=== PATIENT | female | born 1945 | race Caucasian/White ===

== ENCOUNTER 2019-01-19 16:49 | Outpatient (CLI) | payer MEDICARE, BC ==
--- NOTE | 2019-01-19 18:27 | XRAY Report ---
Reason: COUGH Procedure Date: 01/19/2019 Accession Number: [id number] / [id number] Procedure: XR - Chest 2 View X-Ray CPT Code: 06750 Final Report FULL RESULT: EXAM: CHEST RADIOGRAPHY EXAM DATE: 01/19/2019 05:09 PM. CLINICAL HISTORY: COUGH for 1 month. COMPARISON: XR CHEST PA AND LAT 10/09/2007 4:05 PM. TECHNIQUE: 2 views. FINDINGS: Lungs/Pleura: No focal consolidation. Minimal streaky atelectasis or scarring in the lung bases. No pleural effusion. No pneumothorax. Mildly low expansion. Mediastinum: Heart and mediastinal contours are unremarkable. Other: Left chest wall clips. IMPRESSION: No acute cardiopulmonary abnormality. RADIA The call report notification system was initiated by Dr. Bruce Talley at 06:26 PM on 01/19/2019.
== END 2019-01-19 16:50 | disposition home or self-care (01) ==
LOC: DI 16:49
PROVIDERS: ATTEND Internal Medicine
DX: R05 Cough (principal)
CPT/HCPCS: 71046

== ENCOUNTER 2021-01-19 14:26 | Emergency (ER) | payer MEDICARE, BC ==
[2021-01-19] MEDS ORDERED: IBUPROFEN 600 MG TABLET PO STA (14:47)
[2021-01-19] MEDS ORDERED: ACETAMINOPHEN 325 MG TABLET PO STA (14:47)
--- NOTE | 2021-01-19 14:48 | ED Physician Documentation ---
PD HPI UPPER EXT INJURY - Stated complaint Stated Complaint: FALL - Chief complaint Chief Complaint: Trauma Ext - History obtained from History obtained from: Patient - History of Present Illness Location: Left, Clavicle, Shoulder Type of injury: Fall Where injury occurred: Home Pain level max: 6 Pain level now: 4 Improved by: Rest Worsened by: Moving, Palpating Associated symptoms: No: Weakness, Numbness, Tingling, Swelling, Discolored Contributing factors: No: Anticoagulated - Additonal information Additional information: Patient is a 75-year-old female who presents to the emergency department after a trip and fall today, landing on a concrete floor on her left shoulder. Complains of pain to the left clavicle and shoulder. No head injury. No headac he. No neck or back pain. This occurred at home. Pain is worse with movement, better with rest. No swelling. No numbness or tingling. Not anticoagulated. Review of Systems Constitutional: denies: Fever, Chills GI: denies: Vomiting, Diarrhea Skin: denies: Rash Musculoskeletal: denies: Neck pain, Back pain Neurologic: denies: Headache PD PAST MEDICAL HISTORY - Past Medical History Past Medical History: Yes Psych: Depression, Obsessive compulsive disorder - Present Medications Home Medications: Ambulatory Orders Medication Instructions Recorded Confirmed ARIPiprazole [Abilify] 5 mg PO DAILY 09/13/17 09/12/18 Atorvastatin Calcium 80 mg PO DAILY 09/13/17 09/12/18 LORazepam [Lorazepam] 0.5 mg PO PRN PRN 09/13/17 09/12/18 Lactobacillus Acidophilus 2 each PO DAILY 09/13/17 09/12/18 [Probiotic Acidophilus] Mv-Mn/Folic AC/Calcium/Vit K1 1 tab PO DAILY 09/13/17 09/12/18 [Women's 50 Plus Daily Formula] PARoxetine HCL [Paroxetine HCl] 60 mg PO DAILY 09/13/17 09/12/18 Trazodone HCl 100 mg PO PRN PRN 09/13/17 09/12/18 Venlafaxine ER [Effexor ER] 150 mg PO DAILY 09/13/17 09/12/18 carvediloL [Carvedilol] 3.125 mg PO DAILY 09/13/17 04/15/19 lisinopriL [Lisinopril] 5 mg PO BID 09/13/17 04/15/19 traZODone [Desyrel] 300 mg PO HS 03/14/18 09/12/18 Oxycodone HCl/Acetaminophen 1 - 2 each PO Q6H PRN #14 tablet 01/19/21 [Percocet 5-325 mg Tablet] - Allergies Allergies/Adverse Reactions: Allergies Allergy/AdvReac Type Severity Reaction Status Date / Time latex Allergy Hives Verified 01/19/21 14:29 dexamethasone AdvReac Unknown Verified 01/19/21 14:29 penicillin G AdvReac Unknown Verified 01/19/21 14:29 Sulfa (Sulfonamide AdvReac Emesis Verified 01/19/21 14:29 Antibiotics) PD ED PE NORMAL - Vitals Vital signs reviewed: Yes - General General: Alert and oriented X 3, No acute distress - HEENT HEENT: Moist mucous membranes - Neck Neck: Supple, no meningeal sign, No bony TTP - Cardiac Cardiac: RRR - Respiratory Respiratory: No respiratory distress, Clear bilaterally - Abdomen Abdomen: Soft, Non tender, Non distended - Back Back: No spinal TTP - Derm Derm: Warm and dry - Extremities Extremities: Other (L shoulder - mild TTP distal clavicle, no deformity. NVI. FROM of the L shoulder. no scapular tenderness. ) - Neuro Neuro: Alert and oriented X 3 - Psych Psych: Normal mood, Normal affect Results - Vitals Vitals: Vital Signs - 24 hr 01/19/21 01/19/21 14:29 16:15 Temperature 36.5 C Heart Rate 81 86 Respiratory 16 18 Rate Blood Pressure 175/82 H 146/68 H O2 Saturation 96 96 Oxygen O2 Source Room air - Rads (name of study) L shoulder xray Radiology: Final report received, EMP read contemporaneously, See rad report L clavicle xray Radiology: Final report received, EMP read contemporaneously, See rad report PD MEDICAL DECISION MAKING - ED course Complexity details: reviewed results, re-evaluated patient, considered differential, d/w patient ED course: No acute findings on x-ray. Using the arm well. We will continue supportive c are and have her follow-up with her doctor for further care. No bruising or swelling. Neurovascular intact. No evidence of head injury. No indication for CT scan. No neck pain or tenderness. No scalp hematomas. GCS 15. Patient counseled regarding signs and symptoms for which I believe and urgent re- evaluation would be necessary. Patient with good understanding of and agreement to plan and is comfortable going home at this time This document was made in part using voice recognition software. While efforts are made to proofread this document, sound alike and grammatical errors may occur. Departure - Departure Disposition: Home, Self Care Clinical Impression: Contusion of shoulder, left Qualifiers: Encounter type: initial encounter Qualified Code(s): S40.012A - Contusion of left shoulder, initial encounter Condition: Good Instructions: ED Sprain Shoulder Follow-Up: your,doctor in 1 week [Other] Prescriptions: Oxycodone HCl/Acetaminophen [Percocet 5-325 mg Tablet] 1 - 2 each PO Q6H PRN #14 tablet PRN Reason: pain Comments: Please follow up with your doctor for further care. Return if you worsen. Patient was sent to [facility] in [place]. Your x-rays are normal. I am prescribing a short course of narcotic pain medication for you. These are potentially dangerous and addictive medications that should be used carefully. These medications may constipate you. Take an srnd-cae-qikxfwa stool softener (docusate) twice daily with plenty of water while taking these medications. If you go 24 hours without a bowel movement, take oqii-cvo-gscihha miralax, per package instructions. Do not drink or drive while taking these medications. If you received narcotic or sedating medications while in the emergency department, do not drive for 24 hours. Store this medication in a safe, secure place and out of reach of children. It is a violation of federal law to give or sell this medication to another person or to use in a manner other than prescribed. The ED will not refill narcotic prescriptions, including prescriptions lost or stolen. To dispose of unwanted medications: 1. [facility] at [address] in [place] has a medication drop box. They accept prescription medications (in pill form) Saturday through Saturday 9:00 a.m. to 5:00 p.m. 2. The [facility] [employer] [facility] accepts prescription medications (in pill form only) for disposal year round. Call for more information. 3. Contact the [facility] for the next [facility] sponsored prescription drug collection event. , [phone], or [phone]; Discharge Date/Time: 01/19/21 16:16
--- NOTE | 2021-01-19 15:33 | XRAY Report ---
PROCEDURE: Shoulder 3 View LT INDICATIONS: fall, shoulder/clavicle pain TECHNIQUE: 3 views of the shoulder were acquired. COMPARISON: 01/19/2019 chest radiograph FINDINGS: No fracture or dislocation. Calcification in the rotator cuff interval is unchanged from comparison c hest radiograph. Joint space is maintained without significant degenerative changes. Left axillary pineda rgical clip. The regional soft tissues are otherwise normal. IMPRESSION: No acute finding. Reviewed by: Hunter Perez MD on 01/19/2021 3:31 PM PST Approved by: Hunter Perez MD on 01/19/2021 3:31 PM PST Station ID: [id number]
--- NOTE | 2021-01-19 15:34 | XRAY Report ---
PROCEDURE: Clavicle LT INDICATIONS: Trauma, fall, shoulder pain TECHNIQUE: 2 views of the clavicle were acquired. COMPARISON: None. FINDINGS: Bones: No fractures or dislocations. No suspicious bony lesions. Soft tissues: No suspicious soft tissue calcifications. IMPRESSION: No clavicle fracture. Reviewed by: Hunter Perez MD on 01/19/2021 3:32 PM PST Approved by: Hunter Perez MD on 01/19/2021 3:32 PM PST Station ID: [id number]
[2021-01-19 16:16] VITALS: BP 146/68
== END 2021-01-19 16:16 | disposition home or self-care (01) ==
LOC: ED 14:26
DX: S40.012A Contusion of left shoulder, initial encounter (principal); W10.9XXA Fall (on) (from) unspecified stairs and steps, initial encounter
CPT/HCPCS: 73000; 73030; 99283; 99284; A9270

== ENCOUNTER 2021-04-13 08:00 | Outpatient (CLI) | payer MEDICARE, BC ==
[2021-04-13 16:00] LABS: BASOPHILS # (AUTO) 0.1 10^3/uL (0.0-0.1); BASOPHILS % (AUTO) 0.7 %; EOSINOPHILS # (AUTO) 0.1 10^3/uL (0.0-0.7); EOSINOPHILS % (AUTO) 1.8 %; HCT - HEMATOCRIT 31.7 % (37.0-47.0); HGB - HEMOGLOBIN 9.8 g/dL (12.0-16.0); LYMPHOCYTES # (AUTO) 1.7 10^3/uL (1.5-3.5); LYMPHOCYTES % (AUTO) 22.2 %; MEAN CORPUSCULAR HEMOGLOBIN 27.9 pg (27.0-31.0); MEAN CORPUSCULAR HGB CONC 30.9 g/dL (32.0-36.0); MEAN CORPUSCULAR VOLUME 90.3 fL (81.0-99.0); MEAN PLATELET VOLUME 9.1 fL (7.9-10.8); MONOCYTES # (AUTO) 0.4 10^3/uL (0.0-1.0); MONOCYTES % (AUTO) 5.4 %; NEUTROPHILS # (AUTO) 5.3 10^3/uL (1.5-6.6); NEUTROPHILS % (AUTO) 69.6 %; PLT - PLATELET COUNT 386 10^3/uL (130-450); RED BLOOD COUNT 3.51 10^6/uL (4.20-5.40); RED CELL DISTRIBUTION WIDTH 18.7 % (12.0-15.0); WHITE BLOOD COUNT 7.6 x10^3/uL (4.8-10.8)
[2021-04-13 16:16] LABS: ALBUMIN 3.7 g/dL (3.2-5.5); ALBUMIN/GLOBULIN RATIO 1.1 (1.0-2.2); ALKALINE PHOSPHATASE 98 IU/L (42-121); ALT ALANINE AMINOTRANSFERASE 26 IU/L (10-60); AST ASPARTATE AMINOTRANSFERASE 21 IU/L (10-42); BILIRUBIN,TOTAL 0.6 mg/dL (0.2-1.0); BUN - BLOOD UREA NITROGEN 32 mg/dL (6-20); CALCIUM 9.4 mg/dL (8.5-10.3); CARBON DIOXIDE - CO2 24 mmol/L (21-32); CHLORIDE 99 mmol/L (101-111); CHOL/HDL RATIO 2.4 (<4.4); CHOLESTEROL 134 mg/dL; CREATININE 0.9 mg/dL (0.4-1.0); GFR - MDRD 61 (>89); GLUCOSE 69 mg/dL (70-100); HDL CHOLESTEROL 57 mg/dL; LDL CHOLESTEROL,CALCULATED 59 mg/dL; POTASSIUM 3.9 mmol/L (3.5-5.0); SODIUM 136 mmol/L (135-145); TOTAL PROTEIN 7.1 g/dL (6.7-8.2); TRIGLYCERIDES 90 mg/dL; VLDL CHOLESTEROL 18 mg/dL
[2021-04-13 20:30] LABS: ESTIMATED AVERAGE GLUCOSE 120 mg/dL (70-100); HEMOGLOBIN A1c% 5.8 % (4.27-6.07)
== END 2021-04-13 23:59 | disposition home or self-care (01) ==
LOC: LAB.R 08:00
PROVIDERS: ATTEND Internal Medicine
DX: Z00.00 Encounter for general adult medical examination without abnormal findings (principal); C50.919 Malignant neoplasm of unspecified site of unspecified female breast; E78.5 Hyperlipidemia, unspecified; I10 Essential (primary) hypertension; R73.01 Impaired fasting glucose; F42.9 Obsessive-compulsive disorder, unspecified; M85.80 Other specified disorders of bone density and structure, unspecified site; J45.909 Unspecified asthma, uncomplicated; Z13.6 Encounter for screening for cardiovascular disorders; Z79.899 Other long term (current) drug therapy
CPT/HCPCS: 80053; 80061; 82306; 83036; 83721; 84443; 85025

== ENCOUNTER 2021-05-25 17:53 | Emergency (ER) | payer MEDICARE, BC ==
--- NOTE | 2021-05-25 18:29 | ED Physician Documentation ---
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 It went away pretty quickly. This was earlier afternoon. No pain since. There was no associated sweats or shortness of breath. She presumes that it was GI related but was referred here for further evaluation and treatment. Review of Systems Constitutional: denies: Fever, Chills Nose: reports: Reviewed and negative Cardiac: denies: Chest pain / pressure, Palpitations Respiratory: reports: Reviewed and negative PD PAST MEDICAL HISTORY - Past Medical History Psych: Depression, Obsessive compulsive disorder - Present Medications Home Medications: Ambulatory Orders Medication Instructions Recorded Confirmed ARIPiprazole [Abilify] 5 mg PO DAILY 09/13/17 04/28/21 Atorvastatin Calcium 80 mg PO DAILY 09/13/17 04/28/21 Mv-Mn/Folic AC/Calcium/Vit K1 3 tab PO DAILY 09/13/17 04/28/21 [Women's 50 Plus Daily Formula] PARoxetine HCL [Paroxetine HCl] 60 mg PO DAILY 09/13/17 04/28/21 Venlafaxine ER [Effexor ER] 150 mg PO DAILY 09/13/17 04/28/21 carvediloL [Carvedilol] 3.125 mg PO BID 09/13/17 04/28/21 traZODone [Desyrel] 300 mg PO HS 03/14/18 04/28/21 Acetaminophen [Tylenol] 650 mg PO Q6H PRN 04/28/21 04/28/21 Albuterol Sulf [Ventolin Hfa 108 gm INH PRN PRN 04/28/21 04/28/21 Inhaler] Candesartan Cilexetil 8 mg PO DAILY 04/28/21 04/28/21 Fluticasone [Flonase] 1 spray JAMAAL PRN PRN 04/28/21 04/28/21 Loperamide HCl [Imodium A-D] 2 tab PO PRN PRN 04/28/21 04/28/21 Meloxicam [Mobic] 7.5 mg PO BID 04/28/21 04/28/21 Omeprazole 1 tab PO PRN PRN 04/28/21 04/28/21 - Allergies Allergies/Adverse Reactions: Allergies Allergy/AdvReac Type Severity Reaction Status Date / Time latex Allergy Hives Verified 05/25/21 18:12 dexamethasone AdvReac Unknown Verified 05/25/21 18:12 penicillin G AdvReac Unknown Verified 05/25/21 18:12 Sulfa (Sulfonamide AdvReac Emesis Verified 05/25/21 18:12 Antibiotics) PD ED PE NORMAL - Vitals Vital signs reviewed: Yes - General General: Alert and oriented X 3, No acute distress - Cardiac Cardiac: RRR, No murmur - Respiratory Respiratory: No respiratory distress, Clear bilaterally - Abdomen Abdomen: Normal bowel sounds, Soft, Non tender - Back Back: No CVA TTP, No spinal TTP - Derm Derm: Normal color, Warm and dry - Extremities Extremities: No edema, No calf tenderness / cord - Neuro Neuro: Alert and oriented X 3, Normal speech Results - Vitals Vitals: Vital Signs - 24 hr 05/25/21 05/25/21 05/25/21 18:09 18:12 19:24 Temperature 36.4 C L 36.5 C 36.5 C Heart Rate 92 92 88 Respiratory 16 16 16 Rate Blood Pressure 134/78 H 134/78 H 130/80 O2 Saturation 92 92 94 Oxygen O2 Source Room air - EKG (time done) 1838 Rate: Rate (enter#) (82) Rhythm: NSR [place]: Normal Intervals: Normal [place] QRS: Normal Ischemia: Normal ST segments - Labs Labs: Laboratory Tests 05/25/21 18:36 Troponin I High Sens 7.4 PD MEDICAL DECISION MAKING - ED course ED course: She has a few risk factors for ACS and coronary disease but her history is atypical and her fleeting pain is more likely be GI than cardiac. Will check troponin and EKG. Departure - Departure Disposition: 01 Home, Self Care Clinical Impression: Atypical chest pain Condition: Good Record reviewed to determine appropriate education?: Yes Instructions: ED Chest Pain Atypical Unkn Cause Comments: No sign of active heart disease tonight, but to return if the pain recurs. Follow-up with your production expert, next available appointment. Discharge Date/Time: 05/25/21 19:24
[2021-05-25 19:25] VITALS: BP 130/80
== END 2021-05-25 19:24 | disposition home or self-care (01) ==
LOC: ED 17:53
DX: R07.89 Other chest pain (principal)
CPT/HCPCS: 36415; 84484; 93005; 99282; 99283

== ENCOUNTER 2021-07-03 09:49 | Day surgery (SDC) | payer MEDICARE, BC ==
[2021-07-03] MEDS ORDERED: LACTATED RINGERS 1,000 ML IV ONE ×2 (10:19→12:05)
--- NOTE | 2021-07-03 11:08 | ANESTHESIA ---
Pre-Anesthesia VS, & Labs - Diagnosis history of colon polyps, anemia - Procedure EGD, colonoscopy Vital Signs: Temp Pulse Resp BP Pulse Ox 36 C L 100 16 149/91 H 96 07/03/21 10:04 07/03/21 10:04 07/03/21 10:04 07/03/21 10:04 07/03/21 10:04 Height: 4 ft 11 in Weight (kg): 61.5 kg Body Mass Index: 27.3 BMI Classification: Overweight - NPO >8 hours - Is Patient ?: No Home Medications and Allergies Home Medications: Ambulatory Orders Acetaminophen [Tylenol Arthritis] 2 tab PO BID 06/28/21 Ascorbic Acid [Vitamin C] 1,000 mg PO DAILY 06/28/21 Cholecalciferol (Vitamin D3) [Vitamin D3] 10,000 unit PO DAILY 06/28/21 Coffee/Theanine/Superoxide Dis [Neuriva De-Stress Capsule] 1 each PO DAILY 06/28/21 Ferrous Sulfate 325 mg PO DAILY 06/28/21 Fluticasone/Salmeterol [Advair 250-50 Diskus] 1 each IH BID 06/28/21 Gabapentin [Neurontin] 300 mg PO HS 06/28/21 Loperamide [Imodium] 2 mg PO ONCE PRN 06/28/21 Triamcinolone Acetonide 0.1% [Triamcinolone Acetonide] 1 gm TP PRN PRN 06/28/21 ARIPiprazole [Abilify] 2 mg PO DAILY 09/13/17 Atorvastatin Calcium 80 mg PO DAILY 09/13/17 Mv-Mn/Folic AC/Calcium/Vit K1 [Women's 50 Plus Daily Formula] 3 tab PO DAILY 09/13/17 PARoxetine HCL [Paroxetine HCl] 60 mg PO DAILY 09/13/17 Venlafaxine ER [Effexor ER] 150 mg PO DAILY 09/13/17 carvediloL [Carvedilol] 3.125 mg PO BID 09/13/17 traZODone [Desyrel] 300 mg PO HS 03/14/18 Albuterol Sulf [Ventolin Hfa Inhaler] 2 puffs INH Q4HR PRN 04/28/21 Candesartan Cilexetil 8 mg PO DAILY 04/28/21 Fluticasone [Flonase] 1 spray JAMAAL PRN PRN 04/28/21 Meloxicam [Mobic] 7.5 mg PO BID 04/28/21 Omeprazole 20 mg PO PRN PRN 04/28/21 Acetaminophen [Tylenol Arthritis] 2 tab PO BID 06/28/21 Ascorbic Acid [Vitamin C] 1,000 mg PO DAILY 06/28/21 Cholecalciferol (Vitamin D3) [Vitamin D3] 10,000 unit PO DAILY 06/28/21 Coffee/Theanine/Superoxide Dis [Neuriva De-Stress Capsule] 1 each PO DAILY 06/28/21 Ferrous Sulfate 325 mg PO DAILY 06/28/21 Fluticasone/Salmeterol [Advair 250-50 Diskus] 1 each IH BID 06/28/21 Gabapentin [Neurontin] 300 mg PO HS 06/28/21 Loperamide [Imodium] 2 mg PO ONCE PRN 06/28/21 Triamcinolone Acetonide 0.1% [Triamcinolone Acetonide] 1 gm TP PRN PRN 06/28/21 Allergies/Adverse Reactions: Allergies Allergy/AdvReac Type Severity Reaction Status Date / Time latex Allergy Hives Verified 07/03/21 10:28 dexamethasone AdvReac Unknown Verified 07/03/21 10:28 penicillin G AdvReac Unknown Verified 07/03/21 10:28 Sulfa (Sulfonamide AdvReac Emesis Verified 07/03/21 10:28 Antibiotics) Anes History & Medical History - Anesthetic History Anesthesia Complications: reports: No previous complications - Medical History Cardiovascular: reports: Hypertension, High cholesterol, Murmur Pulmonary: reports: Asthma Gastrointestinal: reports: GERD, Colon polyps Urinary: reports: None Musculoskeletal: reports: Osteoarthritis, Other Endocrine/Autoimmune: reports: None Skin: reports: Eczema - Surgical History General: reports: Colonoscopy, Other Eyes Ears Nose Throat (EENT): reports: Cataracts, Tonsil/Adenoidectomy Exam General: Alert, Oriented x3 Dental: WNL Mouth Opening: Greater than 4 Fingerbreadths Neck Mobility: Normal Mallampati classification: II Thyromental Distance: greater than 6 cm Respiratory: Lungs clear Cardiovascular: Regular rate, Normal S1, Normal S2 Plan Anesthesia Type: Total IV Consent for Procedure(s) Verified and Reviewed: Yes Code Status: Attempt Resuscitation ASA classification: 2-Mild systemic disease Is this case an emergency?: No
--- NOTE | 2021-07-03 11:13 | ANESTHESIA ---
Pre-Anesthesia VS, & Labs Vital Signs: Temp Pulse Resp BP Pulse Ox 36 C L 100 16 149/91 H 96 07/03/21 10:04 07/03/21 10:04 07/03/21 10:04 07/03/21 10:04 07/03/21 10:04 Height: 4 ft 11 in Weight (kg): 61.5 kg Body Mass Index: 27.3 BMI Classification: Overweight Home Medications and Allergies Home Medications: Ambulatory Orders Acetaminophen [Tylenol Arthritis] 2 tab PO BID 06/28/21 Ascorbic Acid [Vitamin C] 1,000 mg PO DAILY 06/28/21 Cholecalciferol (Vitamin D3) [Vitamin D3] 10,000 unit PO DAILY 06/28/21 Coffee/Theanine/Superoxide Dis [Neuriva De-Stress Capsule] 1 each PO DAILY 06/28/21 Ferrous Sulfate 325 mg PO DAILY 06/28/21 Fluticasone/Salmeterol [Advair 250-50 Diskus] 1 each IH BID 06/28/21 Gabapentin [Neurontin] 300 mg PO HS 06/28/21 Loperamide [Imodium] 2 mg PO ONCE PRN 06/28/21 Triamcinolone Acetonide 0.1% [Triamcinolone Acetonide] 1 gm TP PRN PRN 06/28/21 ARIPiprazole [Abilify] 2 mg PO DAILY 09/13/17 Atorvastatin Calcium 80 mg PO DAILY 09/13/17 Mv-Mn/Folic AC/Calcium/Vit K1 [Women's 50 Plus Daily Formula] 3 tab PO DAILY 09/13/17 PARoxetine HCL [Paroxetine HCl] 60 mg PO DAILY 09/13/17 Venlafaxine ER [Effexor ER] 150 mg PO DAILY 09/13/17 carvediloL [Carvedilol] 3.125 mg PO BID 09/13/17 traZODone [Desyrel] 300 mg PO HS 03/14/18 Albuterol Sulf [Ventolin Hfa Inhaler] 2 puffs INH Q4HR PRN 04/28/21 Candesartan Cilexetil 8 mg PO DAILY 04/28/21 Fluticasone [Flonase] 1 spray JAMAAL PRN PRN 04/28/21 Meloxicam [Mobic] 7.5 mg PO BID 04/28/21 Omeprazole 20 mg PO PRN PRN 04/28/21 Acetaminophen [Tylenol Arthritis] 2 tab PO BID 06/28/21 Ascorbic Acid [Vitamin C] 1,000 mg PO DAILY 06/28/21 Cholecalciferol (Vitamin D3) [Vitamin D3] 10,000 unit PO DAILY 06/28/21 Coffee/Theanine/Superoxide Dis [Neuriva De-Stress Capsule] 1 each PO DAILY 06/28/21 Ferrous Sulfate 325 mg PO DAILY 06/28/21 Fluticasone/Salmeterol [Advair 250-50 Diskus] 1 each IH BID 06/28/21 Gabapentin [Neurontin] 300 mg PO HS 06/28/21 Loperamide [Imodium] 2 mg PO ONCE PRN 06/28/21 Triamcinolone Acetonide 0.1% [Triamcinolone Acetonide] 1 gm TP PRN PRN 06/28/21 Allergies/Adverse Reactions: Allergies Allergy/AdvReac Type Severity Reaction Status Date / Time latex Allergy Hives Verified 07/03/21 10:28 dexamethasone AdvReac Unknown Verified 07/03/21 10:28 penicillin G AdvReac Unknown Verified 07/03/21 10:28 Sulfa (Sulfonamide AdvReac Emesis Verified 07/03/21 10:28 Antibiotics) Anes History & Medical History - Medical History Cardiovascular: reports: Hypertension, High cholesterol, Murmur Pulmonary: reports: Asthma Gastrointestinal: reports: GERD, Colon polyps Urinary: reports: None Musculoskeletal: reports: Osteoarthritis, Other Endocrine/Autoimmune: reports: None Skin: reports: Eczema - Surgical History General: reports: Colonoscopy, Other Eyes Ears Nose Throat (EENT): reports: Cataracts, Tonsil/Adenoidectomy
[2021-07-03] MEDS ORDERED: LIDOCAINE-MPF 2% 5 ML VIAL ONE (11:26)
[2021-07-03] MEDS ORDERED: PROPOFOL 500 MG/50 ML 500 MG/50 ML VIAL ONE (11:26)
[2021-07-03 12:33] VITALS: BP 143/75
--- NOTE | 2021-07-03 14:48 | ANESTHESIA POST OP EVALUATION ---
Anesthesia Post Eval - Post Anesthesia Eval Vitals: Last Vital Signs Temp 36.5 C 07/03/21 12:31 Pulse 81 07/03/21 12:31 Resp 18 07/03/21 12:31 BP 143/75 H 07/03/21 12:31 Pulse Ox 97 07/03/21 12:31 CV Function Including HR & BP: Stable Pain Control: Satisfactory Nausea & Vomiting: Negative Mental Status: Baseline Respiratory Status: Airway Patent Hydration Status: Satisfactory Anesthesia Complications: None
== END 2021-07-03 09:50 | disposition home or self-care (01) ==
LOC: SDS 09:49
PROVIDERS: ATTEND Surgery
PROC: 0DB28ZX Excision of Middle Esophagus, Via Natural or Artificial Opening Endoscopic, Diagnostic (ICD-10-PCS; 2021-07-03)
PROC: 0DB68ZX Excision of Stomach, Via Natural or Artificial Opening Endoscopic, Diagnostic (ICD-10-PCS; 2021-07-03)
PROC: 0DJD8ZZ Inspection of Lower Intestinal Tract, Via Natural or Artificial Opening Endoscopic (ICD-10-PCS; principal; 2021-07-03 11:00)
PROC: 0DB98ZX Excision of Duodenum, Via Natural or Artificial Opening Endoscopic, Diagnostic (ICD-10-PCS; 2021-07-03 11:00)
DX: D64.9 Anemia, unspecified (principal); K64.8 Other hemorrhoids; K57.30 Diverticulosis of large intestine without perforation or abscess without bleeding; K21.9 Gastro-esophageal reflux disease without esophagitis; K44.9 Diaphragmatic hernia without obstruction or gangrene; F41.8 Other specified anxiety disorders; J45.909 Unspecified asthma, uncomplicated; Z86.010 Personal history of colon polyps
CPT/HCPCS: 43239; 43250; 45378; J7120

== ENCOUNTER 2021-07-27 08:00 | Outpatient (CLI) | payer MEDICARE, BC ==
[2021-07-27 19:09] LABS: BASOPHILS % (AUTO) 0.4 %; EOSINOPHILS # (AUTO) 0.2 10^3/uL (0.0-0.7); EOSINOPHILS % (AUTO) 2.3 %; HCT - HEMATOCRIT 37.8 % (37.0-47.0); HGB - HEMOGLOBIN 11.8 g/dL (12.0-16.0); LYMPHOCYTES # (AUTO) 1.4 10^3/uL (1.5-3.5); LYMPHOCYTES % (AUTO) 18.2 %; MEAN CORPUSCULAR HEMOGLOBIN 29.9 pg (27.0-31.0); MEAN CORPUSCULAR HGB CONC 31.2 g/dL (32.0-36.0); MEAN CORPUSCULAR VOLUME 95.7 fL (81.0-99.0); MEAN PLATELET VOLUME 9.6 fL (7.9-10.8); MONOCYTES # (AUTO) 0.5 10^3/uL (0.0-1.0); NEUTROPHILS # (AUTO) 5.7 10^3/uL (1.5-6.6); NEUTROPHILS % (AUTO) 72.8 %; PLT - PLATELET COUNT 293 10^3/uL (130-450); RED BLOOD COUNT 3.95 10^6/uL (4.20-5.40); RED CELL DISTRIBUTION WIDTH 16.9 % (12.0-15.0); WHITE BLOOD COUNT 7.8 x10^3/uL (4.8-10.8)
[2021-07-27 19:25] LABS: % IRON SATURATION 12 % (20-50); IRON 40 ug/dL (28-170); TOTAL IRON BINDING CAPACITY 343 ug/dL (250-450); TRANSFERRIN 245 mg/dL (192-382)
== END 2021-07-27 23:59 | disposition home or self-care (01) ==
LOC: LAB.R 08:00
PROVIDERS: ATTEND Internal Medicine
DX: D50.9 Iron deficiency anemia, unspecified (principal)
CPT/HCPCS: 82728; 83540; 84466; 85025

== ENCOUNTER 2021-11-08 01:41 | Emergency (ER) | payer MEDICARE, BC ==
[2021-11-08] MEDS ORDERED: ACETAMINOPHEN 325 MG TABLET PO STA (03:42)
--- NOTE | 2021-11-08 03:42 | ED Physician Documentation ---
History of Present Illness - Stated complaint Stated Complaint: FALL LFT HAND/ANKLE PAIN - Chief complaint Chief Complaint: Ext Problem - Additonal information Additional information: 75-year-old woman presents status post fall on left wrist and left ankle at 7 PM this past evening.[id number]. Sudden onset pain, currently 2 out of 10, nonradiating, localized in the left ankle and wrist, worse with movement of the joints.Endorses chronic numbness in the feet that is non worsening. Review of Systems Musculoskeletal: reports: Extremity pain, Joint pain PD PAST MEDICAL HISTORY - Past Medical History Past Medical History: Yes Cardiovascular: Hypertension, High cholesterol, Murmur Respiratory: Asthma Endocrine/Autoimmune: None GI: GERD, Colon polyps : None HEENT: Chronic vision loss, Chronic hearing loss Psych: Depression, Anxiety, Obsessive compulsive disorder Musculoskeletal: Osteoarthritis, Other Derm: Eczema - Past Surgical History Past Surgical History: Yes General: Colonoscopy, Other HEENT: Cataracts, Tonsil/Adenoidectomy - Present Medications Home Medications: Ambulatory Orders Medication Instructions Recorded Confirmed ARIPiprazole [Abilify] 2 mg PO DAILY 09/13/17 06/28/21 Atorvastatin Calcium 80 mg PO DAILY 09/13/17 06/28/21 Mv-Mn/Folic AC/Calcium/Vit K1 3 tab PO DAILY 09/13/17 06/28/21 [Women's 50 Plus Daily Formula] PARoxetine HCL [Paroxetine HCl] 60 mg PO DAILY 09/13/17 06/28/21 Venlafaxine ER [Effexor ER] 150 mg PO DAILY 09/13/17 06/28/21 carvediloL [Carvedilol] 3.125 mg PO BID 09/13/17 06/28/21 traZODone [Desyrel] 300 mg PO HS 03/14/18 06/28/21 Albuterol Sulf [Ventolin Hfa 2 puffs INH Q4HR PRN 04/28/21 06/28/21 Inhaler] Candesartan Cilexetil 8 mg PO DAILY 04/28/21 06/28/21 Fluticasone [Flonase] 1 spray JAMAAL PRN PRN 04/28/21 06/28/21 Meloxicam [Mobic] 7.5 mg PO BID 04/28/21 06/28/21 Omeprazole 20 mg PO PRN PRN 04/28/21 06/28/21 Acetaminophen [Tylenol Arthritis] 2 tab PO BID 06/28/21 06/28/21 Ascorbic Acid [Vitamin C] 1,000 mg PO DAILY 06/28/21 06/28/21 Cholecalciferol (Vitamin D3) 10,000 unit PO DAILY 06/28/21 06/28/21 [Vitamin D3] Coffee/Theanine/Superoxide Dis 1 each PO DAILY 06/28/21 07/03/21 [Neuriva De-Stress Capsule] Ferrous Sulfate 325 mg PO DAILY 06/28/21 06/28/21 Fluticasone/Salmeterol [Advair 1 each IH BID 06/28/21 06/28/21 250-50 Diskus] Gabapentin [Neurontin] 300 mg PO HS 06/28/21 06/28/21 Loperamide [Imodium] 2 mg PO ONCE PRN 06/28/21 06/28/21 Triamcinolone Acetonide 0.1% 1 gm TP PRN PRN 06/28/21 06/28/21 [Triamcinolone Acetonide] - Allergies Allergies/Adverse Reactions: Allergies Allergy/AdvReac Type Severity Reaction Status Date / Time latex Allergy Hives Verified 11/08/21 01:54 dexamethasone AdvReac Unknown Verified 11/08/21 01:54 penicillin G AdvReac Unknown Verified 11/08/21 01:54 Sulfa (Sulfonamide AdvReac Emesis Verified 11/08/21 01:54 Antibiotics) - Social History Does the pt smoke?: No Smoking Status: Never smoker Does the pt drink ETOH?: No Does the pt have substance abuse?: No - Immunizations Immunizations are current?: Yes PD ED PE NORMAL - Vitals Vital signs reviewed: Yes - General General: Alert and oriented X 3, No acute distress, Well developed/nourished - HEENT HEENT: Atraumatic, PERRL, EOMI - Derm Derm: Normal color, Warm and dry - Extremities Extremities: Other (Left wrist and left ankle with significant soft tissue swelling. Left lateral malleolus tender to palpation. Left distal radius tender to palpation. 2+ bilateral radial and DP pulses. Normal sensation and movement distally. tender with ROM of L wrist and ankle) - Neuro Neuro: No motor deficit Results - Vitals Vitals: Vital Signs - 24 hr 11/08/21 01:51 Temperature 36.3 C L Heart Rate 100 Respiratory 17 Rate Blood Pressure 147/77 H O2 Saturation 96 Oxygen O2 Source Room air PD MEDICAL DECISION MAKING - ED course ED course: d/w Dr. Kwong regarding wrist and ankle fractures. she will f/u with him on Saturday. splints placed. crutches provided. return precautions given. pain 2/10. patient states she will take tylenol at home. Departure - Departure Disposition: Home, Self Care Clinical Impression: Fracture of distal fibula, Fracture of distal end of radius Condition: Good Instructions: ED Fx Lower Ext, ED Fx Upper Ext Comments: You were seen in the emergency department for broken wrist (distal radius fracture) and broken ankle (distal fibula fracture). You may benefit from surgery on the wrist. Please make an appointment to see Dr. Kwong, an orthopedist this Saturday. You need to use crutches. Do not bear weight on the broken ankle. You need to keep your splints on until your appointment. Return to the ED if you have any new or worsening symptoms or other concerns.
[2021-11-08 05:26] VITALS: BP 140/72
--- NOTE | 2021-11-08 11:29 | XRAY Report ---
PROCEDURE: Ankle 3 View LT INDICATIONS: PAIN/SWELLING L ANKLE TECHNIQUE: 3 views of the ankle were acquired. COMPARISON: None FINDINGS: Bones: Minimally displaced spiral fracture of the distal fibula. Ankle mortise is normally aligned. No susp icious bony lesions. Soft tissues: Mild ankle effusion. Achilles tendon appears normal. IMPRESSION: Minimally displaced spiral fracture of the distal fibula. Reviewed by: Diane Norris MD on 11/08/2021 11:28 AM PDT Approved by: Diane Norris MD on 11/08/2021 11:28 AM PDT Station ID: [id number]
--- NOTE | 2021-11-08 11:30 | XRAY Report ---
PROCEDURE: Hand 3 View LT INDICATIONS: PAIN/SWELLING/BRUISING L HAND TECHNIQUE: 3 views of the hand(s) acquired. COMPARISON: None FINDINGS: Bones: There is a minimally displaced distal radial comminuted fracture with intra-articular extensio n. No suspicious bony lesions. Soft tissues: No suspicious soft tissue calcifications. IMPRESSION: Comminuted intra-articular distal radial fracture. Reviewed by: Diane Norris MD on 11/08/2021 11:29 AM PDT Approved by: Diane Norris MD on 11/08/2021 11:29 AM PDT Station ID: [id number]
== END 2021-11-08 05:26 | disposition home or self-care (01) ==
LOC: ED 01:41
DX: S82.832A Other fracture of upper and lower end of left fibula, initial encounter for closed fracture (principal); S52.572A Other intraarticular fracture of lower end of left radius, initial encounter for closed fracture; W01.0XXA Fall on same level from slipping, tripping and stumbling without subsequent striking against object, initial encounter; Y93.G1 Activity, food preparation and clean up
CPT/HCPCS: 73130; 73610; 99283; 99284; A9270

== ENCOUNTER 2021-11-11 14:55 | Outpatient (CLI) | payer MEDICARE, BC | END 2021-11-11 14:56 | disposition EMS.NT | LOC: EMS 14:55 | DX: Z03.89 Encounter for observation for other suspected diseases and conditions ruled out (principal) ==

== ENCOUNTER 2021-11-21 08:00 | Outpatient (CLI) | payer MEDICARE, BC ==
--- NOTE | 2021-11-21 14:29 | XRAY Report ---
PROCEDURE: Ankle 3 View LT INDICATIONS: LEFT ANKLE FX TECHNIQUE: 3 views of the ankle were acquired. COMPARISON: X-ray left ankle, 10/31/2009 22. FINDINGS: Bones: There is a mildly displaced oblique fracture in distal fibula involving the ankle mortise. The alignment is unchanged. Ankle mortise is normally aligned. No suspicious bony lesions. Soft tissues: No tibiotalar joint effusion. Achilles tendon appears normal. IMPRESSION: Mildly displaced intra-articular fracture of the distal fibula with stable alignment. Reviewed by: Dilma Robison MD on 11/21/2021 2:27 PM PDT Approved by: Dilma Robison MD on 11/21/2021 2:27 PM PDT Station ID: [id number]
--- NOTE | 2021-11-21 16:06 | XRAY Report ---
PROCEDURE: Wrist 3 View LT INDICATIONS: LEFT WRIST FX TECHNIQUE: 3 views of the wrist were acquired. COMPARISON: X-ray wrist/hand 11/08/2021 comminuted distal intra-articular radial fracture is again id entified. There is mild displacement. Alignment is stable compared to prior exam. FINDINGS: Bones: No fractures or dislocations. No suspicious bony lesions. Soft tissues: No suspicious soft tissue calcifications. IMPRESSION: Stable alignment of intra-articular distal radial fracture. Reviewed by: Diane Norris MD on 11/21/2021 4:04 PM PDT Approved by: Diane Norris MD on 11/21/2021 4:04 PM PDT Station ID: [id number]
== END 2021-11-21 23:59 | disposition home or self-care (01) ==
LOC: DI.WOS 08:00
PROVIDERS: ATTEND Orthopaedic Surgery
DX: S82.432A Displaced oblique fracture of shaft of left fibula, initial encounter for closed fracture (principal); S52.572A Other intraarticular fracture of lower end of left radius, initial encounter for closed fracture

== ENCOUNTER 2021-12-21 14:56 | Outpatient (CLI) | payer MEDICARE, BC ==
--- NOTE | 2021-12-21 16:17 | XRAY Report ---
PROCEDURE: Wrist 3 View LT INDICATIONS: LEFT WRIST FRACTURE TECHNIQUE: 3 views of the wrist were acquired. COMPARISON: Left wrist radiographs 11/21/2021 FINDINGS: Similar alignment of the previously demonstrated distal radius fracture. Probable increase in adjacen t periosteal new bone formation. IMPRESSION: Similar alignment of the previously demonstrated distal radius fracture. Reviewed by: Bruce Aparicio MD on 12/21/2021 4:15 PM PST Approved by: Bruce Aparicio MD on 12/21/2021 4:15 PM PST Station ID: [id number]
--- NOTE | 2021-12-21 16:39 | XRAY Report ---
PROCEDURE: Ankle 3 View LT INDICATIONS: LEFT ANKLE FRACTURE TECHNIQUE: 3 views of the ankle were acquired. COMPARISON: Plain films dated 11/21/2021 FINDINGS: Bones: Callus formation surrounding the distal fibular fracture, consistent with healing. Ankle morti se is normally aligned. No suspicious bony lesions. Soft tissues: No tibiotalar joint effusion. Achilles tendon appears normal. IMPRESSION: Healing distal fibular fracture. Reviewed by: Ana Lilia Lyles MD on 12/21/2021 4:38 PM [facility] Approved by: Ana Lilia Lyles MD on 12/21/2021 4:38 PM [facility] Station ID: [id number]
== END 2021-12-21 14:57 | disposition home or self-care (01) ==
LOC: DI.WOS 14:56
PROVIDERS: ATTEND Orthopaedic Surgery
DX: S82.65XD Nondisplaced fracture of lateral malleolus of left fibula, subsequent encounter for closed fracture with routine healing (principal); S52.532D Colles' fracture of left radius, subsequent encounter for closed fracture with routine healing

== ENCOUNTER 2022-03-26 10:51 | Emergency (ER) | payer MEDICARE, BC ==
[2022-03-26] MEDS ORDERED: KETOROLAC 30 MG/ML VIAL IM STA (13:36)
--- NOTE | 2022-03-26 13:40 | ED Physician Documentation ---
History of Present Illness - Stated complaint Stated Complaint: R HIP PX - Chief complaint Chief Complaint: Ext Problem - Additonal information Additional information: 76-year-old female presents to the emergency department for evaluation of acute right hip and thigh pain. States symptoms began 3 days ago. No falls or trauma. She has pain anytime she moves the hip or attempts to get out of bed. States she cannot stand upright on the hip and walks stooped over. She did unfortunately sustain a left wrist and ankle fracture in October 2021 and has been seen previously by orthopedics but states she is fully recovered from this. Patient does report that she has a history of severe spinal canal stenosis. No falls or trauma. No fevers. She is not anticoagulated. Patient provides history. Fair historian given pain Review of Systems Skin: reports: Reviewed and negative Musculoskeletal: reports: Extremity pain, Joint pain PD PAST MEDICAL HISTORY - Past Medical History Cardiovascular: Hypertension, High cholesterol, Murmur Respiratory: Asthma Endocrine/Autoimmune: None GI: GERD, Colon polyps : None HEENT: Chronic vision loss, Chronic hearing loss Psych: Depression, Anxiety, Obsessive compulsive disorder Musculoskeletal: Osteoarthritis, Other Derm: Eczema - Past Surgical History Past Surgical History: Yes General: Colonoscopy, Other HEENT: Cataracts, Tonsil/Adenoidectomy - Present Medications Home Medications: Ambulatory Orders Medication Instructions Recorded Confirmed ARIPiprazole [Abilify] 2 mg PO DAILY 09/13/17 06/28/21 Atorvastatin Calcium 80 mg PO DAILY 09/13/17 06/28/21 Mv-Mn/Folic AC/Calcium/Vit K1 3 tab PO DAILY 09/13/17 06/28/21 [Women's 50 Plus Daily Formula] PARoxetine HCL [Paroxetine HCl] 60 mg PO DAILY 09/13/17 06/28/21 Venlafaxine ER [Effexor ER] 150 mg PO DAILY 09/13/17 06/28/21 carvediloL [Carvedilol] 3.125 mg PO BID 09/13/17 06/28/21 traZODone [Desyrel] 300 mg PO HS 03/14/18 06/28/21 Albuterol Sulf [Ventolin Hfa 2 puffs INH Q4HR PRN 04/28/21 06/28/21 Inhaler] Candesartan Cilexetil 8 mg PO DAILY 04/28/21 06/28/21 Fluticasone [Flonase] 1 spray JAMAAL PRN PRN 04/28/21 06/28/21 Meloxicam [Mobic] 7.5 mg PO BID 04/28/21 06/28/21 Omeprazole 20 mg PO PRN PRN 04/28/21 06/28/21 Acetaminophen [Tylenol Arthritis] 2 tab PO BID 06/28/21 06/28/21 Ascorbic Acid [Vitamin C] 1,000 mg PO DAILY 06/28/21 06/28/21 Cholecalciferol (Vitamin D3) 10,000 unit PO DAILY 06/28/21 06/28/21 [Vitamin D3] Coffee/Theanine/Superoxide Dis 1 each PO DAILY 06/28/21 07/03/21 [Neuriva De-Stress Capsule] Ferrous Sulfate 325 mg PO DAILY 06/28/21 06/28/21 Fluticasone/Salmeterol [Advair 1 each IH BID 06/28/21 06/28/21 250-50 Diskus] Gabapentin [Neurontin] 300 mg PO HS 06/28/21 06/28/21 Loperamide [Imodium] 2 mg PO ONCE PRN 06/28/21 06/28/21 Triamcinolone Acetonide 0.1% 1 gm TP PRN PRN 06/28/21 06/28/21 [Triamcinolone Acetonide] oxyCODONE [Roxicodone] 5 mg PO TID PRN #15 tablet 03/26/22 - Allergies Allergies/Adverse Reactions: Allergies Allergy/AdvReac Type Severity Reaction Status Date / Time latex Allergy Hives Verified 03/26/22 11:09 dexamethasone AdvReac Unknown Verified 03/26/22 11:09 penicillin G AdvReac Unknown Verified 03/26/22 11:09 Sulfa (Sulfonamide AdvReac Emesis Verified 03/26/22 11:09 Antibiotics) - Social History Does the pt smoke?: No Smoking Status: Never smoker Does the pt drink ETOH?: No Does the pt have substance abuse?: No - Immunizations Immunizations are current?: Yes PD ED PE EXPANDED - General General: Alert, In Pain - Back Back: Other (Full movement of bilateral lower extremities. Motor strength is 5 of 5). No: Vertebral tenderness, Soft tissue tenderness - Extremities Extremities: Right hip (Full active and passive range of motion though active range of motion elicits pain in the right lateral thigh. Patient has a very difficult time getting out of bed. Can bear only minimal weight on the right leg. Distal 2+ pulse DP. No swelling or ecchymosis.) Results - Vitals Vitals: Vital Signs - 24 hr 03/26/22 11:05 Temperature 36.6 C Heart Rate 95 Respiratory 16 Rate Blood Pressure 140/78 H O2 Saturation 94 Oxygen O2 Source Room air - Rads (name of study) right hip Radiology: Final report received (No right femoral fracture or dislocation. Right hip pain and right knee joint osteoarthritis) pelvic CT Radiology: Final report received (No acute finding. Severe spinal canal stenosis L3-S1.Severe bilateral neuroforaminal narrowing. Consider radicular symptoms as cause of patient's pain) PD Medical Decision Making - ED course Complexity details: reviewed results, re-evaluated patient, considered differential, d/w patient ED course: 76-year-old female presents to the emergency department for evaluation of acute right lateral hip and thigh pain. Pain limits her ability to get out of bed. S he does have a history of breast cancer. She also has a known history of what she described as severe spinal canal stenosis in her lumbar spine. She denies any recent falls or trauma. However she has pain when attempting to ambulate or get out of bed. Initial hip and femur x-ray was without acute findings suggest fracture though we do see osteoarthritis. Patient drove herself to the ER thus I did administer her Toradol which she reports did not help the pain. Subsequently I obtained a pelvic CT for further evaluation of the pain to rule out an occult fracture. Noting that she does have known severe spinal canal stenosis. There were no worrisome or new findings seen on CT imaging today. I discussed this with the patient and I discussed with her that I felt likely etiology of her thigh and hip pain was inflamed nerves coming from the lumbar spine. Because she drove here I cannot give her narcotics. I did discuss with patient the option of steroids however she declined them as she feels that they make her depressed. Clinically I do not suspect an occult fracture. History and exam is not consistent with an infectious etiology. Patient is advised very close follow-up with her primary care doctor. I am prescribing a short course of short-acting opioid pain medication for this patient. I have reviewed the patients [employer] and no concerning findings were noted. I have discussed that the opioids are for short term therapy only, and will not be refilled from the ED. Departure - Departure Disposition: 01 Home, Self Care Clinical Impression: Right hip pain Lumbar spinal stenosis Qualifiers: Neurogenic claudication status: without neurogenic claudication Qualified Code(s): M48.061 - Spinal stenosis, lumbar region without neurogenic claudication Condition: Stable Record reviewed to determine appropriate education?: Yes Follow-Up: Ann Costa MD [Provider Admit Priv/Credential] - Prescriptions: oxyCODONE [Roxicodone] 5 mg PO TID PRN #15 tablet PRN Reason: Pain Comments: Jennifer hamilton came to the emergency department because you have been having some pain in your right thigh. The x-ray and CT imaging does not show any broken bones or lytic lesions or concerns of cancer. However you do have severe spinal canal stenosis as well as some foraminal stenosis. This means that the nerves that exit the spine can become inflamed. I suspect that the cause of your pain is inflammation of the nerve. Please discuss this ED visit with Dr. Costa. You may benefit from referral to a back pain specialist. In the short-term I am prescribing you a very limited amount of oxycodone for severe pain. We are unable to refill that from the emergency department. You can take 600 mg of ibuprofen with food 2-3 times a day. Always use your walker when walking. Return to the ER if you develop any numbness in your genital area, lose control of your bowel or bladder f unction or have sudden weakness in your legs
--- NOTE | 2022-03-26 13:53 | XRAY Report ---
PROCEDURE: Femur 2V RT INDICATIONS: R leg pain no trauma TECHNIQUE: 4 views of the femur were acquired. COMPARISON: None. FINDINGS: Bones: No fractures or dislocations. Right hip and right knee joint osteoarthritic changes are seen. No evidence of avascular necrosis of femoral head. No suspicious bony lesions. Soft tissues: No suspicious soft tissue calcifications or masses. Moderate right suprapatellar join t effusion is seen. IMPRESSION: No right femoral fracture or dislocation. Right hip and right knee joint osteoarthritis. No evidence of avascular necrosis. Moderate right suprapatellar joint effusion. Reviewed by: Yoni Carlin MD on 03/26/2022 1:52 PM PST Approved by: Yoni Carlin MD on 03/26/2022 1:52 PM PST Station ID: [id number]
--- NOTE | 2022-03-26 15:19 | CT Report ---
PROCEDURE: PELVIS WO INDICATIONS: acute right hip pain radiating down thigh TECHNIQUE: Noncontrast 3 mm axial sections acquired through the bony pelvis, with coronal and sagittal reformatt ing. For radiation dose reduction, the following was used: automated exposure control, adjustment of mA and/or kV according to patient size. COMPARISON: None. FINDINGS: Image quality: Excellent. Bones: No fracture or dislocation. No suspicious bone lesion. Mild to moderate joint space narrowing in the right hip with marginal osteophytosis and subchondral sclerosis. Significant lumbar spine deg enerative changes. Soft tissues: No significant edema or hematoma. IMPRESSION: No acute finding. Severe spinal canal stenosis suspected at L3-L4, L4-L5, and possibly L5-S1. Severe bilateral neural f oraminal narrowing at L4-L5 and L5-S1. Consider radicular symptoms as a cause of the patient's pain. Lumbar spine MRI recommended. Reviewed by: Hunter Perez MD on 03/26/2022 3:18 PM PST Approved by: Hunter Perez MD on 03/26/2022 3:18 PM PST Station ID: [id number]
[2022-03-26 16:12] VITALS: BP 130/80
== END 2022-03-26 16:13 | disposition home or self-care (01) ==
LOC: ED 10:51
DX: M48.061 Spinal stenosis, lumbar region without neurogenic claudication (principal)
CPT/HCPCS: 96372; 99284

== ENCOUNTER 2022-04-09 15:17 | Outpatient (CLI) | payer MEDICARE, BC ==
--- NOTE | 2022-04-09 17:14 | MRI Report ---
PROCEDURE: LUMBAR SPINE WO INDICATIONS: BACK PAIN, SPINAL STENOSIS TECHNIQUE: Noncontrast sagittal T1 spin echo and T2 fast echo, sagittal STIR, axial T1 and T2 fast spin echo thr ough the lumbar spine. In cases with scoliosis, additional coronal T2 fast spin echo may be performe d. COMPARISON: None. FINDINGS: Image quality: Excellent. Alignment and Curvature: There is rightward curvature with apex at L3. There is grade 1/2 anterolist hesis of L4 on L5 measuring 9 mm. 3 mm retrolisthesis is present of L1 on L2, L2 on L3. Bone Marrow: Marrow is of normal overall signal. Mild to moderate reactive endplate changes are pre sent at L4-5. No acute vertebral body compression fractures. Spinal Cord: Conus medullaris terminates at the L1-2 level. Visualized cord demonstrates normal sig nal and size. Paraspinous Soft Tissues: No paravertebral masses. Discs: Severe desiccation is present throughout the lumbar spine. T11-T12: Disc bulge with prominent posterior central protrusion causing moderate spinal stenosis. No foraminal narrowing. T12-L1: Mild disc bulge with right posterior paracentral protrusion with moderate spinal stenosis. No foraminal narrowing. L1-L2: Mild disc bulge with mild spinal stenosis. [id number] left foraminal narrowing with f acet and ligamentum flavum hypertrophy. L2-L3: Mild disc bulge with mild to moderate spinal stenosis. [id number]-ll-gwadamig left foraminal narr owing with facet and ligamentum flavum hypertrophy. L3-L4: Mild disc bulge with severe spinal stenosis and canal compression. L4-L5: Mild disc bulge with severe spinal stenosis and canal compression. Severe bilateral foramina l narrowing with effacement of the exiting L4 nerve roots, right greater than left. Facet and ligamen nicki flavum hypertrophy are present. L5-S1: Mild disc bulge with moderate spinal stenosis. Severe bilateral foraminal narrowing with eff acement of the exiting L5 nerve roots, left greater than right. Facet hypertrophy is present. IMPRESSION: Multilevel disc bulges and protrusions. Multilevel spinal stenosis most severe at L3-4 and L4-5 secondary to disc bulge with contributing eff ect of facet/ligamentum flavum arthropathy. Multilevel foraminal narrowing most severe at L4-5 and L5-S1 secondary to facet arthropathy. Reviewed by: Diane Norris MD on 04/09/2022 5:13 PM PST Approved by: Diane Norris MD on 04/09/2022 5:13 PM PST Station ID: [id number]
== END 2022-04-09 15:18 | disposition home or self-care (01) ==
LOC: DI 15:17
PROVIDERS: ATTEND Internal Medicine
DX: M48.062 Spinal stenosis, lumbar region with neurogenic claudication (principal); M51.26 Other intervertebral disc displacement, lumbar region; M47.816 Spondylosis without myelopathy or radiculopathy, lumbar region; M47.817 Spondylosis without myelopathy or radiculopathy, lumbosacral region; M48.07 Spinal stenosis, lumbosacral region

== ENCOUNTER 2022-10-02 17:08 | Outpatient (CLI) | payer MEDICARE, BC ==
--- NOTE | 2022-10-02 18:41 | Ultrasound Report ---
PROCEDURE: Duplex Ext Veins Left INDICATIONS: SWELLING OF UPPER ARM TECHNIQUE: Real-time imaging, as well as color and pulse Doppler interrogation, was performed of the left upper extremity deep veins from the inferior neck to the antecubital fossa. COMPARISON: None. FINDINGS: The internal jugular vein, visualized portions of the subclavian vein, axillary, and brach ial veins are free of intraluminal thrombus. Where physically possible, the veins are normally compr essible. Color and pulse Doppler demonstrate normal intraluminal flow, with expected phasicity and p ulsatility. Additional scanning of the cephalic and basilic veins of the superficial system demonstr ate normal compressibility, without thrombus. IMPRESSION: No deep venous thrombosis of the left upper extremity. Reviewed by: Fritz Nguyen on 10/02/2022 6:39 PM PDT Approved by: Fritz Nguyen on 10/02/2022 6:39 PM PDT Station ID: [id number]
== END 2022-10-02 17:09 | disposition home or self-care (01) ==
LOC: DI 17:08
PROVIDERS: ATTEND Internal Medicine
DX: R22.32 Localized swelling, mass and lump, left upper limb (principal)

== ENCOUNTER 2022-12-14 15:06 | Outpatient (CLI) | payer MEDICARE, BC ==
--- NOTE | 2022-12-14 16:08 | XRAY Report ---
PROCEDURE: Chest 2 View X-Ray INDICATIONS: ACUTE COUGH TECHNIQUE: 2 views of the chest were acquired. COMPARISON: None. FINDINGS: Surgical changes and devices: Surgical clips projecting over the mediastinum.. Lungs and pleura: No pleural effusions or pneumothorax. Lungs are clear. Mediastinum: Mediastinal contours appear normal. Heart size is normal. Bones and chest wall: No suspicious bony lesions. Degenerative changes of the spine. Overlying soft tissues appear unremarkable. IMPRESSION: No acute cardiopulmonary process. Reviewed by: Priyank Morales MD on 12/14/2022 4:06 PM PDT Approved by: Priyank Morales MD on 12/14/2022 4:06 PM PDT Station ID: [id number]
== END 2022-12-14 15:07 | disposition home or self-care (01) ==
LOC: DI 15:06
PROVIDERS: ATTEND Internal Medicine
DX: R05.1 Acute cough (principal)

== ENCOUNTER 2022-12-30 09:45 | Emergency (ER) | payer MEDICARE, BC ==
[2022-12-30] MEDS ORDERED: SODIUM CHLORIDE 0.9% 1,000 ML IV STA (10:03)
[2022-12-30] MEDS ORDERED: ONDANSETRON 4 MG/2 ML VIAL IVP STA (10:03)
--- NOTE | 2022-12-30 10:06 | ED Physician Documentation ---
History of Present Illness - Stated complaint Stated Complaint: NAUSEA,WEIGHT LOSS - Chief complaint Chief Complaint: General - History obtained from History obtained from: Patient - Additonal information Additional information: 76-year-old woman with history of remote breast cancer presents with evaluation of abdominal pain, diarrhea, nausea and weight loss. States that over the last month she has had diarrhea after she eats associate with nausea and a 12 to 18 pound weight loss. She has had some intermittent left lower quadrant pain especially after eating with this. Last colonoscopy in June of last year reviewed showing mild diverticulosis and internal hemorrhoids, otherwise unremarkable. PD PAST MEDICAL HISTORY - Past Medical History Past Medical History: Yes Cardiovascular: Hypertension, High cholesterol, Murmur Respiratory: Asthma Endocrine/Autoimmune: None GI: GERD, Colon polyps : None HEENT: Chronic vision loss, Chronic hearing loss Psych: Depression, Anxiety, Obsessive compulsive disorder Musculoskeletal: Osteoarthritis, Other Derm: Eczema - Past Surgical History Past Surgical History: Yes General: Colonoscopy, Other HEENT: Cataracts, Tonsil/Adenoidectomy - Present Medications Home Medications: Ambulatory Orders Medication Instructions Recorded Confirmed ARIPiprazole [Abilify] 1 mg PO DAILY 09/13/17 12/30/22 Atorvastatin Calcium 80 mg PO DAILY 09/13/17 12/30/22 Mv-Mn/Folic AC/Calcium/Vit K1 2 tab PO DAILY 09/13/17 12/30/22 [Women's 50 Plus Daily Formula] PARoxetine HCL [Paroxetine HCl] 60 mg PO DAILY 09/13/17 12/30/22 Venlafaxine ER [Effexor ER] 150 mg PO DAILY 09/13/17 12/30/22 carvediloL [Carvedilol] 3.125 mg PO BID 09/13/17 12/30/22 traZODone [Desyrel] 300 mg PO HS 03/14/18 12/30/22 Albuterol Sulf [Ventolin Hfa 2 puffs INH Q4HR PRN 04/28/21 12/30/22 Inhaler] Fluticasone [Flonase] 1 spray JAMAAL PRN PRN 04/28/21 12/30/22 Omeprazole 20 mg PO PRN PRN 04/28/21 12/30/22 Ascorbic Acid [Vitamin C] 1,000 mg PO DAILY 06/28/21 12/30/22 Cholecalciferol (Vitamin D3) 10,000 unit PO DAILY 06/28/21 12/30/22 [Vitamin D3] Ferrous Sulfate 65 mg PO DAILY 06/28/21 12/30/22 Fluticasone/Salmeterol [Advair 1 each IH BID 06/28/21 12/30/22 250-50 Diskus] Triamcinolone Acetonide 0.1% 1 gm TP PRN PRN 06/28/21 12/30/22 [Triamcinolone Acetonide] Cholecalciferol [Vitamin D3] 5,000 units PO DAILY 05/04/22 12/30/22 Fluticasone Propionate [Flovent 50 mcg INH PRN PRN 05/04/22 12/30/22 Diskus] Valsartan [Diovan] 40 mg PO BID 05/04/22 12/30/22 Cholestyramine [Questran] 4 gm PO DAILY #30 packet 12/30/22 Metoclopramide [Reglan] 10 mg PO Q6H PRN #20 tablet 12/30/22 - Allergies Allergies/Adverse Reactions: Allergies Allergy/AdvReac Type Severity Reaction Status Date / Time latex Allergy Hives Verified 12/30/22 09:56 dexamethasone AdvReac Unknown Verified 12/30/22 09:56 penicillin G AdvReac Unknown Verified 12/30/22 09:56 Sulfa (Sulfonamide AdvReac Emesis Verified 12/30/22 09:56 Antibiotics) - Social History Does the pt smoke?: No Smoking Status: Never smoker Does the pt drink ETOH?: No Does the pt have substance abuse?: No - Immunizations Immunizations are current?: Yes - POLST Patient has POLST: No PD ED PE NORMAL - Vitals Vital signs reviewed: Yes - General General: Alert and oriented X 3, No acute distress - Cardiac Cardiac: RRR, No murmur - Respiratory Respiratory: No respiratory distress, Clear bilaterally - Abdomen Abdomen: Other (Hyperactive bowel sounds, soft and nontender.) - Derm Derm: Normal color, Warm and dry - Neuro Neuro: Alert and oriented X 3, Normal speech Results - Vitals Vitals: Vital Signs - 24 hr 12/30/22 09:52 Temperature 35.9 C L Heart Rate 95 Respiratory 20 Rate Blood Pressure 109/51 L O2 Saturation 97 Oxygen O2 Source Room air - Labs Labs: Laboratory Tests 12/30/22 12/30/22 10:11 10:20 WBC 7.2 RBC 4.58 Hgb 14.1 Hct 44.6 MCV 97.4 MCH 30.8 MCHC 31.6 L RDW 12.9 Plt Count 292 MPV 9.8 Neut # (Auto) 5.3 Lymph # (Auto) 1.4 L [place] # (Auto) 0.4 Eos # (Auto) 0.1 Baso # (Auto) 0.0 Absolute Nucleated RBC 0.00 Nucleated RBC % 0.0 Sodium 137 Potassium 3.7 Chloride 100 L Carbon Dioxide 26 Anion Gap 11.0 BUN 11 Creatinine 0.8 Estimated GFR (MDRD) 70 L Glucose 103 Calcium 9.4 Magnesium 1.5 L Total Bilirubin 0.4 AST 13 ALT 15 Alkaline Phosphatase 69 Total Protein 7.2 Albumin 3.9 Globulin 3.3 Albumin/Globulin Ratio 1.2 Lipase < 10 L - Rads (name of study) CT abdomen pelvis with IV contrast Relevant Findings:: Final report received, EMP independent interpretation of test PD Medical Decision Making - ED course ED course: 76-year-old woman presents with weight loss nausea and more chronic diarrhea. States a weight loss and nausea have been for a month and the diarrhea is going on for years. CBC and CMP unremarkable except for hypomagnesemia which I will replete IV with 2 g of IV magnesium. CT scanning demonstrating multiple findings including a hydropic gallbladder, large hiatal hernia, diverticulosis, hepatomegaly, and spinal changes. She was feeling better after IV fluids and Zofran here. Nontender on reevaluation. The note of hydropic gallbladder on CT is I do not think related to her current findings as the acuity of her symptoms and location of her pain (left lower quadrant) and no tenderness in the right upper quadrant would not be consistent with this finding. Follow-up with her surgeon was advised. No evidence of cholestasis/biliary obstruction on labs. Departure - Departure Disposition: 01 Home, Self Care Clinical Impression: Nausea, Diarrhea Condition: Good Record reviewed to determine appropriate education?: Yes Instructions: ED Nausea Vomiting Prescriptions: Cholestyramine [Questran] 4 gm PO DAILY #30 packet Metoclopramide [Reglan] 10 mg PO Q6H PRN #20 tablet PRN Reason: nausea or headache Comments: As discussed, the main findings on the CAT scan were the hiatal hernia which I think caused a lot of your symptoms. He did notice a swollen gallbladder but your symptoms and location of your pain are not consistent with that. I am prescribing 2 medications which I sent to [facility]. 1. Reglan/metoclopramide which is a nausea agent but also should help your hiatal hernia empty. 2. Cholestyramine which is a binding agent and should help with your chronic diarrhea Follow-up with the surgeon you were seen previously regarding your hiatal hernia calling for the next available appointment. Return for new or worsening symptoms. Forms: PCP List
[2022-12-30 10:30] LABS: BASOPHILS % (AUTO) 0.6 %; EOSINOPHILS # (AUTO) 0.1 10^3/uL (0.0-0.7); EOSINOPHILS % (AUTO) 0.7 %; HCT - HEMATOCRIT 44.6 % (37.0-47.0); HGB - HEMOGLOBIN 14.1 g/dL (12.0-16.0); LYMPHOCYTES # (AUTO) 1.4 10^3/uL (1.5-3.5); LYMPHOCYTES % (AUTO) 19.6 %; MEAN CORPUSCULAR HEMOGLOBIN 30.8 pg (27.0-31.0); MEAN CORPUSCULAR HGB CONC 31.6 g/dL (32.0-36.0); MEAN CORPUSCULAR VOLUME 97.4 fL (81.0-99.0); MEAN PLATELET VOLUME 9.8 fL (7.9-10.8); MONOCYTES # (AUTO) 0.4 10^3/uL (0.0-1.0); MONOCYTES % (AUTO) 4.9 %; NEUTROPHILS # (AUTO) 5.3 10^3/uL (1.5-6.6); NEUTROPHILS % (AUTO) 73.9 %; PLT - PLATELET COUNT 292 10^3/uL (130-450); RED BLOOD COUNT 4.58 10^6/uL (4.20-5.40); RED CELL DISTRIBUTION WIDTH 12.9 % (12.0-15.0); WHITE BLOOD COUNT 7.2 x10^3/uL (4.8-10.8)
[2022-12-30 10:36] LABS: ALBUMIN 3.9 g/dL (3.2-5.5); ALBUMIN/GLOBULIN RATIO 1.2 (1.0-2.2); ALKALINE PHOSPHATASE 69 IU/L (42-121); ALT ALANINE AMINOTRANSFERASE 15 IU/L (10-60); AST ASPARTATE AMINOTRANSFERASE 13 IU/L (10-42); BILIRUBIN,TOTAL 0.4 mg/dL (0.2-1.0); BUN - BLOOD UREA NITROGEN 11 mg/dL (6-20); CALCIUM 9.4 mg/dL (8.5-10.3); CARBON DIOXIDE - CO2 26 mmol/L (21-32); CHLORIDE 100 mmol/L (101-111); CREATININE 0.8 mg/dL (0.6-1.3); GFR - MDRD 70 (>89); GLUCOSE 103 mg/dL (74-104); MAGNESIUM 1.5 mg/dL (1.7-2.3); POTASSIUM 3.7 mmol/L (3.5-4.5); SODIUM 137 mmol/L (135-145); TOTAL PROTEIN 7.2 g/dL (6.4-8.9)
[2022-12-30 10:40] LABS: LIPASE < 10 U/L (11-82)
[2022-12-30] MEDS ORDERED: MAGNESIUM SULFATE 2 GRAM 2 GM/50 ML BAG IV ONE (10:44)
--- NOTE | 2022-12-30 12:24 | CT Report ---
PROCEDURE: ABDOMEN/PELVIS W INDICATIONS: L abd pain, IV only CONTRAST: 100ml omni 300 TECHNIQUE: After the administration of IV contrast, 5 mm thick sections acquired from the diaphragms to the symp hysis. 5 mm thick coronal and sagittal reformats were acquired. For radiation dose reduction, the f ollowing was used: automated exposure control, adjustment of mA and/or kV according to patient size. COMPARISON: None FINDINGS: Image quality: Excellent. Lung bases and heart: Unremarkable. Liver: No solid mass. Hepatomegaly. Gallbladder and biliary tree: Hydropic appearing gallbladder with mild intrahepatic biliary ductal di lation. Spleen: No splenomegaly. Pancreas: No pancreatic ductal dilation. Adrenals: No adrenal nodule. Kidneys and ureters: No hydronephrosis. No renal cystic lesion which requires follow up. No solid mas s. Bowel and peritoneum: Large hiatal hernia. No bowel distension. No pathologic free fluid. Diverticulo sis without evidence of diverticulitis. Lymph nodes: No central or retroperitoneal adenopathy. Vessels: No infrarenal aortic aneurysm. PELVIS Reproductive organs: Unremarkable. Bladder: No abnormal wall thickening, accounting for underdistension. Pelvic lymph nodes: No pelvic adenopathy by size criteria. Bones: No aggressive osseous abnormality. Moderate spondylitic changes of the lumbar spine. Other: No significant ventral or inguinal hernia. IMPRESSION: Hydropic gallbladder with mild central biliary ductal dilation, consider right upper quadrant ultraso und. Diverticulosis without evidence of acute diverticulitis Large hiatal hernia. Hepatomegaly. Moderate to severe sclerotic changes of the lumbar spine. Reviewed by: Randy Perez MD on 12/30/2022 11:23 AM [facility] Approved by: Randy Perez MD on 12/30/2022 11:23 AM [facility] Station ID: [id number]
[2022-12-30 13:02] VITALS: BP 134/95; O2SAT 94
== END 2022-12-30 12:57 | disposition home or self-care (01) ==
LOC: ED 09:45
DX: R11.0 Nausea (principal); R19.7 Diarrhea, unspecified; I10 Essential (primary) hypertension; E78.00 Pure hypercholesterolemia, unspecified; Z79.899 Other long term (current) drug therapy; Z79.51 Long term (current) use of inhaled steroids
CPT/HCPCS: 36415; 80053; 83690; 83735; 85025; 96365; 96375; 99284